=== PATIENT | male | born 2000 | race Caucasian/White ===

== ENCOUNTER 2018-09-06 02:34 | Emergency (ER) | payer SELFPAY ==
[2018-09-06 02:35] VITALS: BP 128/59; PULSE 116; RESP 22; TEMP 36.6; O2SAT 97; BMI 36.9
[2018-09-06] MEDS: 0.9% Normal Saline 1,000 ML 999 ML IV ×2 (02:45→04:34)
[2018-09-06] MEDS: Ondansetron 4 MG/2 ML Vial IV (02:45)
--- NOTE | 2018-09-06 02:51 | ED.VISSUMM ---
- ER Visit Summary Date of Service: 09/06/18 Chief Complaint: Nausea, vomiting, diarrhea History of Present Illness: The patient is a 18 M with nausea, vomiting, and diarrhea that started yesterday around 7 PM, just about 7 hours ago. No fevers or pain. No cough. He does have a sore throat. History of appendectomy. Otherwise unremarkable past medical history. No alcohol or tobacco use. Physical Examination: Afebrile. Tachycardic at 116. Respiratory rate 22. Patient appears slightly anxious. No distress. Skin appears normal. Mucous membranes dry. Heart tachycardic. Lungs clear. Abdomen soft and nontender. Test Results: None indicated Emergency Department Course and Treatment: Patient was treated with IV fluids, Zofran, and Imodium. I suspect this is a viral syndrome. Will reassess. Repeat heart rate was still in the 110s. He received another fluid bolus. He had some continued nausea but no vomiting. He received Phenergan. On further reevaluation, no further nausea. No further vomiting or diarrhea. Heart rate 108. Patient will be discharged with a course of Phenergan. He may take Imodium as needed. Stay hydrated. Return for any new or worsening issues. Treatment Plan: As above Disposition: Discharge Impression: 1. Nausea, vomiting, diarrhea This note was generated with [employer] dictation software. It may contain incorrect words, spelling, and punctuation that were not noted in review of the chart prior to signing ED Disposition - Plan for ED Patient: Chief Complaint: Nausea/Vomiting/Diarrhea Referrals: NOT,DEFINED [NON-STAFF] -
[2018-09-06] MEDS: proMETHazine 25 MG/ML Syringe 12.5 MG IV (04:42)
[2018-09-06 04:43] VITALS: BP 117/65; PULSE 113; RESP 24; O2SAT 93
--- NOTE | 2018-09-06 05:37 | ED.DEP ---
ED Disposition - Plan for ED Patient: Chief Complaint: Nausea/Vomiting/Diarrhea Instructions: ED Vomiting Diarrhea Nonspecific Ad Prescriptions: proMETHazine tablet [Phenergan tablet] 25 mg PO Q6H PRN PRN #10 tab PRN Reason: Nausea Additional Instructions: [facility]
[2018-09-06 05:41] VITALS: BP 121/60; PULSE 103; RESP 28; O2SAT 94
== END 2018-09-06 05:43 | disposition home or self-care (01) ==
PROVIDERS: Emergency Provider Emergency Medicine
DX: R11.2 Nausea with vomiting, unspecified (principal); R19.7 Diarrhea, unspecified; J02.9 Acute pharyngitis, unspecified; R00.0 Tachycardia, unspecified
CPT/HCPCS: 96361; 96374; 96375; 99284; J7030; A4216; J2405